=== PATIENT | female | born 1990 | race Hispanic/Latino ===

== ENCOUNTER 2017-07-06 21:01 | Emergency (ER) | payer BC ==
[~2017-07-06] VITALS: Ht 149.9 cm; Wt 77.1 kg
[2017-07-06] MEDS ORDERED: ACETAMINOPHEN 325 MG TAB ONE (21:44)
[2017-07-06] MEDS ORDERED: ACETAMINOPHEN 325 MG TAB PO ONE (21:45)
[2017-07-06 22:07] LABS: STREPTOCOCCUS GRP A ANTIGEN NEGATIVE (NEGATIVE)
[2017-07-06 22:25] LABS: INFLUENZAE A&B ANTIGEN (RAPID) POSITIVE FLU B (NEGATIVE)
--- NOTE | 2017-07-06 23:11 | Diagnostic Imaging Report ---
EXAMINATION: CHEST 2 VIEWS INDICATION: Cough for 2 days, pneumonia. COMPARISON: None FINDINGS: TUBES and LINES: None. LUNGS: Lungs are well inflated. Lungs are clear. There is no evidence of pneumonia or pulmonary edema. PLEURA: No pleural effusion or pneumothorax. HEART AND MEDIASTINUM: The cardiomediastinal silhouette is unremarkable. BONES AND SOFT TISSUES: No acute osseous lesion. Soft tissues are unremarkable. UPPER ABDOMEN: No free air under the diaphragm. IMPRESSION: No acute thoracic abnormality. Signed by: Dr. Cr Banks M.D. on 07/06/2017 11:08 PM
== END 2017-07-06 22:04 | disposition home or self-care (01) ==
LOC: ER 21:01
DX: R50.9 Fever, unspecified (principal); R05 Cough; J11.1 Influenza due to unidentified influenza virus with other respiratory manifestations
CPT/HCPCS: 71046; 83518; 87070; 87400; 99283